=== PATIENT | female | born 1990 | race Caucasian/White ===

== ENCOUNTER 2019-07-20 11:37 | Observation (INO) ==
[2019-07-20] MEDS ORDERED: *HR* Promethazine 25 MG/ML VIAL IVP PRN (12:40)
[2019-07-20] MEDS ORDERED: Naloxone 0.4 MG/ML INJ IVP PRN (12:40)
[2019-07-20] MEDS ORDERED: 0.9 % Sodium Chloride 1,000 ML ONE (13:20)
[2019-07-20] MEDS: 0.9 % Sodium Chloride 1,000 ML IVC SCH (13:20)
[2019-07-20 13:42] LABS: Basophils # 0.1 K/mcL (0.0-0.2); Basophils % 0.5 %; Eosinophils # 0.2 K/mcL (0.0-0.6); Eosinophils % 1.9 %; Hematocrit 42.8 % (35.3-44.9); Hemoglobin 14.2 g/dL (11.5-15.4); Immature Granulocytes % 0.4 % (0-4); Lymphocytes # 4.6 K/mcL (0.6-4.6); Lymphocytes % 38.9 %; Mean Corpuscular HGB Conc 33.2 g/dL (31.6-35.5); Mean Corpuscular Hemoglobin 30.4 pg (28.0-33.3); Mean Corpuscular Volume 91.6 fL (83.0-100.0); Mean Platelet Volume 10.7 fL (9.4-12.4); Monocytes # 0.7 K/mcL (0.0-1.3); Neutrophils # 6.2 K/mcL (1.6-8.9); Platelet Count 352 K/mcL (140-400); Red Blood Count 4.67 M/mcL (3.82-4.97); Red Cell Distribution Width 12.7 % (11.5-14.5); Segmented Neutrophils % 52.3 %; White Blood Count 11.8 K/mcL (4.3-11.1)
[2019-07-20 13:50] LABS: Alanine Aminotransferase 21 Units/L (7-52); Albumin 4.7 g/dL (3.5-5.7); Alkaline Phosphatase 47 Units/L (34-104); Aspartate Amino Transferase 14 Units/L (13-39); BUN/Creatinine Ratio 19 (6-26); Bilirubin,Direct 0.1 mg/dL (0.0-0.2); Bilirubin,Indirect 0.5 mg/dL (0.0-1.2); Bilirubin,Total 0.6 mg/dL (0.3-1.0); Blood Urea Nitrogen 15 mg/dL (6-20); Calcium 9.6 mg/dL (8.6-10.3); Carbon Dioxide 24 mEq/L (23-29); Chloride 103 mEq/L (98-107); Globulin 2.4 g/dL (2.4-3.5); Glucose 86 mg/dL (70-105); Osmolality,Calculated 286 (280-300); Potassium 3.6 mEq/L (3.5-5.1); Sodium 138 mEq/L (136-145); Total Protein 7.1 g/dL (6.4-8.9); eGFR For African Americans > 60 (> 60); eGFR For Non-African Americans > 60 (> 60)
[2019-07-20] MEDS: Acetaminophen IV 1,000 MG/100 ML INFUS..BTL IVPB SCH ×2 (14:28→18:08)
[2019-07-20] MEDS: cefOXitin 2,000 MG in Water for inj. (sterile) 20 ML IVP SCH ×2 (16:42→23:57)
[2019-07-20] MEDS: Ondansetron 4 MG/2 ML VIAL IVP PRN (17:18)
[2019-07-21] MEDS: 0.9 % Sodium Chloride 1,000 ML IVC SCH (02:07)
[2019-07-21] MEDS: Acetaminophen IV 1,000 MG/100 ML INFUS..BTL IVPB SCH ×2 (05:18)
[2019-07-21] MEDS: Ondansetron 4 MG/2 ML VIAL IVP PRN (05:30)
[2019-07-21] MEDS ORDERED: *HR* FentaNYL (PF) 100 MCG/2 ML VIAL ONE ×2 (07:08→07:34)
[2019-07-21] MEDS ORDERED: *HR* Midazolam HCl 2 MG/2 ML VIAL ONE ×2 (07:08→07:34)
[2019-07-21] MEDS ORDERED: *HR* Propofol 200 MG/20 ML VIAL IVP ONE ×2 (07:09→07:34)
[2019-07-21] MEDS ORDERED: Ketorolac 30 MG/ML VIAL ONE ×2 (07:12→08:02)
[2019-07-21] MEDS ORDERED: Dexamethasone 4 MG/ML VIAL ONE (08:01)
[2019-07-21] MEDS ORDERED: Ondansetron 4 MG/2 ML VIAL ONE (08:01)
[2019-07-21] MEDS ORDERED: Neostigmine Methylsulfate 3 MG/3 ML SYRINGE ONE (08:33)
[2019-07-21] MEDS ORDERED: Morphine Sulfate 2 MG/ML SYRINGE IVP PRN (08:51)
[2019-07-21] MEDS ORDERED: *HR* Midazolam HCl 2 MG/2 ML VIAL IVP PRN (08:51)
[2019-07-21] MEDS ORDERED: *HR* OxyCODONE Immed Rel 5 MG TABLET PO PRN (08:51)
[2019-07-21] MEDS ORDERED: Ketorolac 30 MG/ML VIAL IVP ONE (08:51)
[2019-07-21] MEDS ORDERED: Ondansetron 4 MG/2 ML VIAL IVP ONE (08:51)
[2019-07-21] MEDS ORDERED: *HR* Promethazine 25 MG/ML VIAL IVP PRN ×2 (08:51→09:47)
[2019-07-21] MEDS ORDERED: Pantoprazole 40 MG VIAL IVP SCH (09:00)
[2019-07-21] MEDS: cefOXitin 2,000 MG in Water for inj. (sterile) 20 ML IVP SCH (09:41)
[2019-07-21] MEDS ORDERED: BuPROPion XL (24 HR) 150 MG TABLET PO SCH (09:47)
[2019-07-21] MEDS ORDERED: *HR* OxyCODONE/APAP 5/325 TABLET PO PRN (09:47)
[2019-07-21] MEDS ORDERED: Ondansetron 4 MG/2 ML VIAL IVP PRN (09:47)
[2019-07-21] MEDS ORDERED: Naloxone 0.4 MG/ML INJ IVP PRN (09:47)
[2019-07-21 12:44] VITALS: BP 118/85
[2019-07-22] MEDS ORDERED: Pantoprazole 40 MG VIAL IVP SCH (09:00)
== END 2019-07-21 12:38 | disposition home or self-care (01) ==
LOC: 3ANU
PROVIDERS: ADMIT Surgery; ATTEND Surgery

== ENCOUNTER → 2022-07-22 11:11 | Observation (INO) ==
[~2022-07-22 11:11] MED LIST: ASPIRIN 81 MG PO SCH; NON-FORMULARY MEDICATION 1 EACH EACH (Ferrous Sulfate 1 TAB) PO SCH; NON-FORMULARY MEDICATION 1 EACH EACH (Prenatal Vitamin Tablet 1 TAB) PO SCH
== END | disposition home or self-care (01) ==
LOC: 1NENULAB
PROVIDERS: ADMIT Registered Nurse; ATTEND Registered Nurse

== ENCOUNTER 2022-08-05 03:55 | Inpatient (IN) ==
[2022-08-05] MEDS ORDERED: Naloxone 0.4 MG/ML INJ IVP PRN (03:59)
[2022-08-05] MEDS ORDERED: Famotidine 20 MG/2 ML VIAL IVP PRN (03:59)
[2022-08-05] MEDS ORDERED: *HR* Nalbuphine 10 MG/ML AMPUL IV PRN (03:59)
[2022-08-05] MEDS ORDERED: Lidocaine 1% 20 ML MDV INFILT PRN (03:59)
[2022-08-05] MEDS ORDERED: Metoclopramide 10 MG/2 ML VIAL IVP PRN (03:59)
[2022-08-05] MEDS ORDERED: Ondansetron 4 MG/2 ML VIAL IVP PRN (03:59)
[2022-08-05] MEDS ORDERED: Ringers Solution, Lactated 1,000 ML IVC SCH (04:00)
[2022-08-05 05:38] LABS: Basophils # 0.1 K/mcL (0.0-0.2); Basophils % 0.6 %; Eosinophils # 0.6 K/mcL (0.0-0.6); Eosinophils % 3.6 %; Hemoglobin 10.9 g/dL (11.5-15.4); Immature Granulocytes % 2.5 % (0-4); Lymphocytes # 4.3 K/mcL (0.6-4.6); Lymphocytes % 25.8 %; Mean Corpuscular Hemoglobin 30.5 pg (28.0-33.3); Mean Corpuscular Volume 92.4 fL (83.0-100.0); Mean Platelet Volume 11.1 fL (9.4-12.4); Monocytes # 1.3 K/mcL (0.0-1.3); Monocytes % 7.8 %; Platelet Count 317 K/mcL (140-400); Red Blood Count 3.57 M/mcL (3.82-4.97); Red Cell Distribution Width 13.2 % (11.5-14.5); Segmented Neutrophils % 59.7 %; White Blood Count 16.7 K/mcL (4.3-11.1)
[2022-08-05 07:20] LABS: Amphetamine Screen,Urine Negative ng/mL (Cutoff=1000); Barbiturate Screen,Urine Negative ng/mL (Cutoff=200)
[2022-08-05 07:21] LABS: Benzodiazepines Screen,Urine Negative ng/mL (Cutoff=300); Cannabinoid Screen,Urine Negative ng/mL (Cutoff = 50); Cocaine Screen,Urine Negative ng/mL (Cutoff= 300); Opiate Screen,Urine Negative ng/mL (Cutoff=300); Phencyclidine Screen,Urine Negative ng/mL (Cutoff=25)
[2022-08-05] MEDS ORDERED: EPHEDrine 50 MG/ML VIAL IVP PRN (08:21)
[2022-08-05] MEDS ORDERED: Penicillin G Potassium 5,000,000 UNIT in 0.9 % Sodium Chloride Mini Bag 100 ML IVPB ONE (08:29)
[2022-08-05] MEDS ORDERED: miSOPROStoL 25 MCG TABLET PO PRN (08:29)
[2022-08-05] MEDS ORDERED: Epidural Premix (fent/bupiv) 110 ML EP SCH (08:30)
[2022-08-05] MEDS ORDERED: Nicotine 14 MG PATCH.TD24 TD SCH (12:00)
[2022-08-05] MEDS: Penicillin G Potassium 2,500,000 UNIT/105 ML MLS IVPB SCH ×3 (13:06→21:27)
[2022-08-05] MEDS ORDERED: Oxytocin 30 UNIT/503 ML BAG IVC ONE (16:54)
[2022-08-05] MEDS ORDERED: Oxytocin 30 UNIT/503 ML BAG IVC SCH (17:00)
[2022-08-06] MEDS: Penicillin G Potassium 2,500,000 UNIT/105 ML MLS IVPB SCH (01:52)
[2022-08-06] MEDS ORDERED: Lanolin 7 G OINT...G. TP PRN ×2 (06:55→07:19)
[2022-08-06] MEDS ORDERED: Benzocaine/Menthol 56 GM AEROSOL SPRAY TP PRN (06:55)
[2022-08-06] MEDS ORDERED: OXYTOCIN/RINGERS LACTATE 10 UNIT/166.6 ML BAG IVC ONE ×2 (06:55→07:19)
[2022-08-06] MEDS ORDERED: Rho Immune Globulin 1,500 UNIT SYRINGE IM PRN ×2 (06:55→07:19)
[2022-08-06] MEDS ORDERED: Ondansetron ODT 4 MG TAB.RAPDIS SL PRN ×2 (06:55→07:19)
[2022-08-06] MEDS ORDERED: Measles/Mumps/Rubella Vacc 0.5 ML VIAL SQ PRN ×2 (06:55→07:19)
[2022-08-06] MEDS ORDERED: Oxytocin 30 UNIT/503 ML BAG IVC SCH ×3 (07:00→07:19)
[2022-08-06] MEDS ORDERED: Acetaminophen 325 MG TABLET PO SCH (07:00)
[2022-08-06] MEDS: Benzocaine/Menthol 56 GM AEROSOL SPRAY TP PRN (08:55)
[2022-08-06] MEDS: Ibuprofen 600 MG TABLET PO SCH ×3 (08:56→22:31)
[2022-08-06] MEDS ORDERED: Prenatal Vit/FA 1 EACH TABLET PO SCH (09:00)
[2022-08-06] MEDS ORDERED: Nicotine 14 MG PATCH.TD24 TD SCH (09:00)
[2022-08-06] MEDS ORDERED: Ibuprofen 600 MG TABLET PO SCH (09:55)
[2022-08-06] MEDS: Acetaminophen 325 MG TABLET PO SCH ×2 (15:31→22:31)
[2022-08-07] MEDS: Ibuprofen 600 MG TABLET PO SCH (04:09)
[2022-08-07] MEDS: Acetaminophen 325 MG TABLET PO SCH (04:09)
[2022-08-07 06:51] VITALS: BP 105/69; PULSE 92; TEMP 97.9; O2SAT 98
[2022-08-07] MEDS: Benzocaine/Menthol 56 GM AEROSOL SPRAY TP PRN (08:19)
== END 2022-08-07 10:20 | disposition home or self-care (01) | DRG 560 ==
LOC: 1NENULAB 03:55 → 1NENUOBS 08-06 07:50
PROVIDERS: ADMIT Student in an Organized Health Care Education/Training Program; ATTEND Student in an Organized Health Care Education/Training Program